=== PATIENT | male | born 1945 | race Caucasian/White ===

== ENCOUNTER → 2016-06-01 | Outpatient (CLI) | payer MEDICARE | END | disposition home or self-care (01) | LOC: GMAJ 10:19 | PROVIDERS: ATTEND Family Medicine | DX: Z12.5 Encounter for screening for malignant neoplasm of prostate (principal) ==

== ENCOUNTER → 2016-12-27 | Outpatient (CLI) | payer OTHER ==
--- NOTE | 2016-12-28 15:33 | RAD ---
EXAM DESCRIPTION: Shoulder,Left 2 or More Views CLINICAL HISTORY: 71 yearsMale, PAIN IN LT SHOULDER COMPARISON: None. IMPRESSION: 4 views of the left shoulder demonstrate no evidence of acute fracture, dislocation, or destructive osseous lesion. Moderate acromioclavicular and moderate glenohumeral changes of osteoarthritis are demonstrated Large marginal osteophyte along the medial aspect of the humeral head. Visualized portions of the left lung apex are clear. Electronically signed by: Wilfrido Noguera MD 12/28/2016 3:31 PM CDT
== END | disposition home or self-care (01) ==
LOC: RAD 13:58
PROVIDERS: ATTEND Orthopaedic Surgery
DX: M25.512 Pain in left shoulder (principal)

== ENCOUNTER → 2017-06-23 | Outpatient (CLI) | payer MEDICARE ==
--- NOTE | 2017-06-23 18:17 | RAD ---
EXAM DESCRIPTION: Knee,Right Complete CLINICAL HISTORY: 72 years, Male, KNEE PAIN COMPARISON: None TECHNIQUE: Four views of the right knee including standing views FINDINGS: No fracture or dislocation. Bones appear normally mineralized with normal trabecular pattern. Narrowed appearance of medial compartment on frontal view. Mild spurring at tibial spines. Lateral view shows normal position of the patella. No patellar spurring or enthesopathy. Question small suprapatellar knee joint effusion. Normal contour of quadriceps and patellar tendons. Mild lateral tilt of the patella without subluxation on patellar sunrise view. IMPRESSION: Degenerative changes as described. Electronically signed by: Arian Womack MD 06/23/2017 6:16 PM CDT
--- NOTE | 2017-06-23 18:19 | RAD ---
EXAM DESCRIPTION: Pelvis CLINICAL HISTORY: 72 years Male, HIP PAIN COMPARISON: None. TECHNIQUE: AP view of hips and pelvis FINDINGS: No fracture. No bony destructive lesion. Mild degenerative changes in the lower L-spine and at the SI joints. Mild medial hip joint space narrowing. Lucency in the proximal left femur is rim sclerotic and appears benign. This could be ganglion or large synovial herniation pit. Small enchondroma might be considered. This measures 2 cm. If the patient has left hip pain, further evaluation with MRI could be performed for characterization. IMPRESSION: Negative for fracture or dislocation. Two similar lesion in the proximal left femur, likely benign. Electronically signed by: Arian Womack MD 06/23/2017 6:18 PM CDT
== END ==
LOC: RAD 07:46
PROVIDERS: ATTEND Orthopaedic Surgery
DX: M25.561 Pain in right knee (principal); M25.551 Pain in right hip

== ENCOUNTER → 2017-10-20 | Outpatient (CLI) | payer OTHER | LOC: GMAJ 11:17 | PROVIDERS: ATTEND Family Medicine | DX: Z12.5 Encounter for screening for malignant neoplasm of prostate (principal) ==

== ENCOUNTER → 2018-11-19 | Outpatient (CLI) | payer OTHER ==
--- NOTE | 2018-11-20 14:27 | MRI ---
EXAM DESCRIPTION: Cervical Spine: MRI. CLINICAL HISTORY: 73 years Male SPONDYLOSIS neck pain, more on left. Neck "pops" when turning head. COMPARISON: Cervical spine radiographs 11/14/2018. TECHNIQUE: Multiplanar, high-field MRI, multiple sequences, non-contrast Cervical spine.. Technically difficult study due to motion artifact from neck movement and swallowing. FINDINGS: C2-C3: Disc desiccation. Anterior and left side endplate reactive changes. Left facet arthrosis, left side disc osteophyte complex bulge into the foramen, and left uncinate spur with moderate narrowing. Canal and right neuroforamen are patent. C3-C4: Minimal disc desiccation with no bulging. Minimal thickening of the posterior ligaments. Hypertrophy of the left facet with neural foraminal narrowing. Canal and right neuroforamen are patent. C4-C5: Disc desiccation with disc space maintained. Minimal anterior bulging and endplate reaction. Mild posterior midline bulge. Bilateral hypertrophic facet arthrosis and mild bilateral neural foraminal narrowing. Mild canal narrowing. C5-C6: Disc desiccation with disc space maintained. Bilateral mild facet arthrosis and ligament thickening. Trace posterior disc bulge. Bilateral mild to moderate neural foraminal narrowing. Mild to moderate canal narrowing. C6-C7: Disc desiccation with posterior midline bulge abutting the cord. Mild left foraminal narrowing and moderate right neural foraminal narrowing. Mild canal narrowing. Bilateral facet joints are negative. Normal signal in the remaining discs with no bulging. Disc spaces preserved. Canal and neural foramina are patent. Facet joints are unremarkable. Spinal alignment reduced lordosis.. No cord compression or cord edema. Atlantoaxial joint mild to moderate hypertrophic arthrosis with narrowing of the space between the anterior ligament and the anterior cord.. Base of the cerebellar tonsils is above the foramen magnum. Paravertebral soft tissues are unremarkable.. Vertebral bodies are not compressed at any level. Normal marrow signal in the remaining vertebral bodies and the posterior elements. IMPRESSION: 1. No canal or foraminal stenosis. Stable levels of disc desiccation and minimal bulging, but no disc herniations. No nerve root or cord compromise at any level. Unilateral or bilateral hypertrophic facet arthrosis at multiple levels. 2. Mild to moderate multifactorial canal narrowing at C5-C6. Trace posterior disc bulge. Bilateral mild to moderate neural foraminal narrowing. 3. Multifactorial left neural foraminal moderate narrowing at C2-C3 with moderate left side spondylosis. Electronically signed by: Malik Rahman MD 11/20/2018 2:25 PM CDT
== END ==
LOC: MRI 07:43
PROVIDERS: ATTEND Family Medicine
DX: M47.22 Other spondylosis with radiculopathy, cervical region (principal); M50.11 Cervical disc disorder with radiculopathy, high cervical region; M50.120 Mid-cervical disc disorder, unspecified level

== ENCOUNTER → 2018-12-10 | Outpatient (CLI) | payer OTHER | LOC: GMAJ 10:42 | PROVIDERS: ATTEND Family Medicine | DX: Z12.5 Encounter for screening for malignant neoplasm of prostate (principal); I10 Essential (primary) hypertension; E78.00 Pure hypercholesterolemia, unspecified ==

== ENCOUNTER → 2018-12-18 | Outpatient (CLI) | payer OTHER ==
--- NOTE | 2018-12-18 14:15 | MRI ---
EXAM DESCRIPTION: Lumbar Spine w/o Contrast : Magnetic Resonance Imaging. CLINICAL HISTORY: LUMBOSACRAL ROOT DISORDERS COMPARISON: Lumbar radiographs May. TECHNIQUE: Multiplanar, multiple standard sequences, non contrast MRI, lumbar spine. Minimal artifact and loss of resolution due to patient large body habitus. FINDINGS: L5-S1: The disc is well visualized on axial T2 series 501, image 3. Disc desiccation with disc space maintained. No significant bulging. Increased fatty tissue surrounding the thecal sac. Bilateral hypertrophic facet arthrosis and posterior flavum ligament thickening more right than left. Mild canal narrowing. Bilateral foraminal stenosis. L4-L5: Disc desiccation with minimal disc space loss and minimal posterior bulge into the canal and into the bilateral foramina. Bilateral hypertrophic facet arthrosis and flavum ligament thickening. Mild canal narrowing. Increased fatty soft tissue surrounding the thecal sac. Bilateral moderate foraminal narrowing. L3-L4: Disc desiccation with disc space maintained and no bulging. Minimal hypertrophic arthrosis of the facets and thickening of the ligaments. Increased epidural fat abutting the thecal sac. AP canal diameter 11 mm. Bilateral moderate foraminal narrowing. L2-L3: Disc desiccation with disc space maintained. No posterior bulging. Bilateral hypertrophic facet arthrosis and thickening of the ligaments. Minimal epidural fat. AP canal diameter 12 mm. Mild bilateral foraminal narrowing more on the right. L1-L2: Normal signal in the disc with disc space preserved and no bulging. Minimal hypertrophic changes in the facets and thickening of the ligaments posteriorly. Mild canal narrowing and bilateral foramina are patent. Conus terminates posterior to L1 vertebral body. T12-L1: Normal signal in the disc with disc space preserved. Moderate endplate reactive changes right anterior in the superior L1 endplate. Posterior elements unremarkable. Canal and foramina are patent. No abnormal curvature. Paravertebral soft tissues minimal paraspinal muscle atrophy.. Distal cord with possible hyperintense T2 signal in the central conus also possible hyperintense inversion recovery signal in the central cord on the sagittal STIR images. Normal marrow signal in the remaining vertebral bodies and the posterior elements. Vertebral bodies are not compressed at any level. IMPRESSION: 1. Epidural lipomatosis most prominent mid L3 vertebral body into the sacrum. Minimal artifacts and decreased resolution of the study due to patient large body habitus. 2. Bilateral foraminal stenosis at L5-S1 associated with hypertrophic facet arthrosis. Possible compromise of the bilateral exiting L5 nerves. 3. Multiple levels of hypertrophic facet arthrosis and thickening of the posterior flavum ligaments. Moderate canal narrowing L3-4 and L2-3. No canal stenosis at any level. 4. Question of hyperintense T2 signal in the conus on T2 and STIR images, possibly in the central cord distally. This could represent syringomyelia. Recommend follow-up MRI scan of the thoracic spine without and with gadolinium IV contrast. Electronically signed by: Malik Rahman MD 12/18/2018 2:14 PM CDT
== END ==
LOC: MRI 08:10
PROVIDERS: ATTEND Family Medicine
DX: G54.4 Lumbosacral root disorders, not elsewhere classified (principal); E88.2 Lipomatosis, not elsewhere classified; M48.07 Spinal stenosis, lumbosacral region

== ENCOUNTER → 2019-02-04 | Outpatient (CLI) | payer OTHER ==
--- NOTE | 2019-02-05 09:33 | MRI ---
EXAM DESCRIPTION: Lumbar Spine w/wo Contrast (accession [id number]), Thoracic Spine w/wo Contrast (accession [id number]): Magnetic Resonance Imaging. CLINICAL HISTORY: BACK PAIN LUMBAR. Abnormality of the conus medullaris on noncontrast study of the lumbar spine. COMPARISON: MRI noncontrast lumbar spine 18 December 2018. TECHNIQUE: Multiplanar, MRI, multiple standard sequences, without and with 1 mL per 5 kg Gadolinium IV contrast, lumbar and thoracic spine. No adverse reactions. Technically difficult study due to patient body habitus with image degradation particularly on the postcontrast images. FINDINGS: The conus is well demonstrated posterior to the L1 vertebral body, despite artifact,, with no mass effect, no abnormal signal, no hemorrhage, and normal enhancement. Disc space narrowing T3-T4 with desiccation of the disc. Anterior moderate endplate reactive changes more to the right of midline with anterior ridging. Minimal posterior disc bulge into the right ventral canal. No cord impingement. Canal and foramina are patent. Normal contrast enhancement disc and soft tissues. T4-T5 anterior and right side moderate endplate reactive changes. Anterior right disc bulge and endplate ridging. Old Schmorl's nodes in inferior T4 endplate. Minimal disc desiccation with no posterior bulging. No significant canal and foraminal narrowing. Normal contrast enhancement disc and soft tissues. Minimal disc space loss T5-T6 and minimal anterior Modic reactive changes. Anterior disc bulge and endplate ridging. Minimal disc desiccation. No posterior bulging. Canal and foramina are patent. Normal contrast enhancement. Disc and soft tissues. T7-T8: Disc space loss with granulation tissue in the disc space. Minimal disc enhancement. Inferior T7 Schmorl's node. Large anterior right side bridging osteophyte over the disc space. Posterior disc bulge. No significant canal and foraminal narrowing. Normal contrast enhancement in the soft tissues. T8-T9: Large bridging osteophyte anteriorly into the right of midline. Desiccation of the disc with normal enhancement. Disc space maintained. Schmorl's node inferior T8 with normal enhancement. No significant canal and foraminal narrowing. Normal enhancement of the soft tissues. T9-T10: Anterior right bridging osteophyte. Minimal fluid signal in the disc and in the inferior T9 endplate. Increased enhancement in the disc. No posterior bulging. No significant canal or foraminal stenosis. Anterior spondylosis at T10-11 and inferior T10 endplate Schmorl's node. No abnormal enhancement. T11-12 anterior right side endplate reactive changes. Normal signal in the remainder of the disc with disc space preserved. No significant canal and foraminal narrowing. T12-L1: Normal signal in the disc with disc space preserved. Moderate endplate reactive changes right anterior in the superior L1 endplate. Minimal enhancement. Posterior elements unremarkable. Canal and foramina are patent. Normal contrast enhancement. L1-L2: Normal signal in the disc with disc space preserved and no bulging. Minimal hypertrophic changes in the facets and thickening of the ligaments posteriorly. Mild canal narrowing and bilateral foramina are patent. Conus terminates posterior to L1 vertebral body. L2-L3: Disc desiccation with disc space maintained. No posterior bulging. Bilateral hypertrophic facet arthrosis and thickening of the ligaments. Minimal epidural fat. AP canal diameter 12 mm. Mild bilateral foraminal narrowing more on the right. Normal enhancement. Vertebral bodies are not compressed at any level. Otherwise normal marrow signal in the vertebral bodies and the posterior elements. Otherwise normal Contrast enhancement in the vertebral bodies and posterior elements. Paravertebral soft tissues negative.Perivertebral contrast enhancement normal. IMPRESSION: 1. Conus medullaris well-demonstrated posterior to the L1 vertebral body with normal caliber. No mass effect or abnormal signal. Normal contrast enhancement. 2. Multiple levels of spondylosis in the mid and lower thoracic spine endplates. Mostly affecting the anterior and right disc space margins with disc bulging and osteophyte formation. No significant canal or foraminal stenosis. Active Schmorl's node inferior T7 endplate, and inferior T9 endplate with enhancement and also disc enhancement. 3. Technically difficult study due to patient body habitus with image degradation especially on the postcontrast images. Electronically signed by: Malik Rahman MD 02/05/2019 9:31 AM [employer]
--- NOTE | 2019-03-07 11:40 | RAD ---
EXAM DESCRIPTION: Pelvis CLINICAL HISTORY: 74 years Male, HIP PAIN COMPARISON: Pelvic radiographs 06/23/2017 TECHNIQUE: Single frontal view radiograph of the pelvis. IMPRESSION: Partially obscured sacrum and coccyx by overlying bowel. No acute displaced fracture. No dislocation. Mild arthrosis of the hips. Unchanged ill-defined lucent lesion in the lateral aspect of the left femoral head. Pubic and SI joints are intact. Lumbar spondylosis. Electronically signed by: Reed Merritt MD 03/07/2019 11:39 AM [facility]
--- NOTE | 2019-03-07 11:41 | RAD ---
EXAM DESCRIPTION: Knee,Right Complete CLINICAL HISTORY: 74 years, Male, PAIN IN RIGHT KNEE COMPARISON: 06/23/2017 TECHNIQUE: Four views of the right knee FINDINGS: No acute displaced fracture or dislocation is seen. The alignment of the knee is intact. Mild osteoarthrosis with mild medial knee compartment joint space narrowing and tricompartmental small marginal osteophyte formation. Trace knee joint effusion. The soft tissues are unremarkable. IMPRESSION: 1. No acute osseous abnormality. 2. Mild knee osteoarthrosis. Electronically signed by: Daryl Slater DO 03/07/2019 11:40 AM [facility]
== END ==
LOC: MRI 07:59
PROVIDERS: ATTEND Neurological Surgery
DX: M47.894 Other spondylosis, thoracic region (principal); M51.84 Other intervertebral disc disorders, thoracic region; M51.44 Schmorl's nodes, thoracic region

== ENCOUNTER 2019-08-25 11:03 | Emergency (ER) | payer OTHER ==
--- NOTE | 2019-08-25 12:17 | ED.PDOC ---
History of Present Illness - General Chief Complaint: ENT Problem Stated Complaint: nosebleed Time Seen by Provider: 08/25/19 11:04 Source: patient Exam Limitations: no limitations - History of Present Illness Initial Comments: The patient is a 74-year-old male presents emergency room secondary to epistaxis of the right nares. It appears to be bleeding more posteriorly than I can see with the light. We did attempt 15 minutes compression with a nasal clamp without success. Patient agreed to placement of the Rhino Rocket. Risk and benefits were explained prior. He did receive a 7.5 cm Rhino Rocket placement which did control the bleeding. No evidence of trauma. He has had a history of frequent epistaxis in the past. He does take Plavix. No evidence of any overt infection. Timing/Duration: 4-6 hours Severity: mild Improving Factors: nothing Worsening Factors: nothing Associated Symptoms: denies symptoms Allergies/Adverse Reactions: Allergies Codeine Allergy (Verified 08/25/19 11:19) Diphenhydramine [From Benadryl] Allergy (Verified 08/25/19 11:19) Home Medications: Ambulatory Orders Aspirin [Tito Low Dose] 81 mg PO DAILY 08/25/19 Clopidogrel Bisulfate 75 mg PO DAILY 08/25/19 Furosemide 40 mg PO DAILY 08/25/19 Metoprolol Tartrate 50 mg PO DAILY 08/25/19 Nitroglycerin [Nitrostat] 0.4 mg SL PRN 08/25/19 Potassium Chloride [K-Tab] 10 meq PO BID 08/25/19 Rosuvastatin Calcium 10 mg PO DAILY 08/25/19 Tramadol HCl 50 mg PO Q4H PRN 08/25/19 Review of Systems - Review of Systems Constitutional: States: no symptoms reported EENTM: States: see HPI Respiratory: States: no symptoms reported Cardiology: States: no symptoms reported Gastrointestinal/Abdominal: States: no symptoms reported Genitourinary: States: no symptoms reported Musculoskeletal: States: no symptoms reported Skin: States: no symptoms reported Neurological: States: no symptoms reported Endocrine: States: no symptoms reported All other Systems: No Change from Baseline Past Medical History (General) - Patient Medical History Hx Stroke: No Hx Cardiac Disorders: Yes - Angina,HI Hx Congestive Heart Failure: Yes Hx Hypertension: Yes Hx Diabetes: No Surgical History: appendectomy, tonsillectomy - Vaccination History Hx Influenza Vaccination: Yes Hx Pneumococcal Vaccination: Yes - Social History Hx Tobacco Use: No Family Medical History - Family History Father Family History: Unknown Living Status: Unknown Physical Exam - Physical Exam General Appearance: Alert, Comfortable, No apparent distress Eye Exam: bilateral normal Ears, Nose, Throat: hearing grossly normal, normal pharynx, other - See history of present illness Neck: non-tender, supple Respiratory: no respiratory distress, no accessory muscle use Cardiovascular/Chest: normal peripheral pulses, no edema, other - Regular rate Peripheral Pulses: radial,right: 2+, radial,left: 2+ Gastrointestinal/Abdominal: non tender - Obese, soft Rectal Exam: deferred Extremity: no calf tenderness, normal capillary refill Neurologic: attendant arcade II-XII nml as tested, alert, normal mood/affect, oriented x 3 Skin Exam: normal color Comments: Vital Signs - 8 hr 08/25/19 08/25/19 11:14 12:06 Temperature 96.9 F L Pulse Rate [ 62 58 L Left Brachial] Respiratory 20 20 Rate Blood Pressure 171/90 161/92 [Left Arm] O2 Sat by Pulse 97 97 Oximetry Progress - Progress Progress: 08/25/19 12:15 The patient is a 74-year-old male presenting to the emergency room secondary to right-sided epistaxis. Hemostasis failed to be obtained by pressure. A 7.5 cm Rhino Rocket was placed which did obtain hemostasis. He will need to have this removed in 48 hours. He can resume taking his Plavix Monday morning. He needs to avoid sleeping with a fan or a vent directly on him as this can dry out the nasal mucosa and cause cracking. Additionally he can apply a thin layer of Vaseline to the inside of the nares at night and sleep with a humidifier which may also reduce the frequency. Once this is healed up, he should consider seeing ear nose and throat secondary to his history of recurrent epistaxis or they cannot get a better look into the more posterior aspect of his nasal passages to see if there is some intervention that needs to be taken to prevent further issues. ER warnings are given. Keep routine follow-up with primary care doctor. michelle urias 212 Departure - Departure Clinical Impression: Epistaxis Disposition: Discharge to Home or Self Care Condition: Fair Departure Forms: ED Discharge - Pt. Copy, Patient Portal Self Enrollment Instructions: Nosebleeds (DC) Diet: regular diet Activity: increase activity as tolerated Referrals: Tarun Moncada MD [Primary Care Provider] - 1-2 Weeks Home Medications: Ambulatory Orders Aspirin [Tito Low Dose] 81 mg PO DAILY 08/25/19 Clopidogrel Bisulfate 75 mg PO DAILY 08/25/19 Furosemide 40 mg PO DAILY 08/25/19 Metoprolol Tartrate 50 mg PO DAILY 08/25/19 Nitroglycerin [Nitrostat] 0.4 mg SL PRN 08/25/19 Potassium Chloride [K-Tab] 10 meq PO BID 08/25/19 Rosuvastatin Calcium 10 mg PO DAILY 08/25/19 Tramadol HCl 50 mg PO Q4H PRN 08/25/19 Additional Instructions: The patient is a 74-year-old male presenting to the emergency room secondary to right-sided epistaxis. Hemostasis failed to be obtained by pressure. A 7.5 cm Rhino Rocket was placed which did obtain hemostasis. He will need to have this removed in 48 hours. He can resume taking his Plavix Monday morning. He needs to avoid sleeping with a fan or a vent directly on him as this can dry out the nasal mucosa and cause cracking. Additionally he can apply a thin layer of Vaseline to the inside of the nares at night and sleep with a humidifier which may also reduce the frequency. Once this is healed up, he should consider seeing ear nose and throat secondary to his history of recurrent epistaxis or they cannot get a better look into the more posterior aspect of his nasal passages to see if there is some intervention that needs to be taken to prevent further issues. ER warnings are given. Keep routine follow-up with primary care doctor.
== END 2019-08-25 12:27 | disposition home or self-care (01) ==
LOC: ER 11:03
DX: R04.0 Epistaxis (principal); I25.2 Old myocardial infarction; I11.0 Hypertensive heart disease with heart failure; I50.9 Heart failure, unspecified; Z79.02 Long term (current) use of antithrombotics/antiplatelets